=== PATIENT | female | born 1975 | race Caucasian/White ===

== ENCOUNTER 2021-07-12 18:36 | Emergency (ER) | payer BC, SELFPAY ==
[2021-07-12 18:50] VITALS: BP 175/93; PULSE 81; RESP 16; TEMP 36.7; O2SAT 98
--- NOTE | 2021-07-12 19:07 | ED.DENTAL ---
HPI - Dental/Oral General Chief complaint: Dental/Oral Stated complaint: Lt Tooth Pain Source: patient and RN notes reviewed Mode of arrival: ambulatory History of Present Illness HPI Narrative: This is a 45-year-old female that presented to urgent care with complaints of left-sided tooth pain. According to patient she started experiencing pain yesterday that became unbearable today she did not do anything at home to relieve her symptoms. Patient called her dental office she is not able to get an appointment until . She does not have any other associated symptoms. Patient blood pressure elevated due to pain. She will follow up with her primary care physician in take pain medication as prescribed MD Complaint: tooth pain Teeth map: 1. Decayed 2. Decay 3. Decayed Related Data Allergies Allergy/AdvReac Type Severity Reaction Status Date / Time No Known Allergies Allergy Verified 07/12/21 19:06 Review of Systems Review of Systems: A 14 organ system Review of Systems was performed and pertinent positives included in the HPI, otherwise remaining ROS is negative. [facility] Family History Family History (Updated 07/12/21 @ 19:11 by JUVENAL Dorman) Other Family history non-contributory Social History Social History Smoking status: Heavy tobacco smoker Alcohol intake: current Exam Narrative: GENERAL: This is a well-nourished, well-developed patient, in no apparent distress. HEAD: normocephalic, atraumatic. EYES: PERRL. Sclera clear/white. Vision is grossly intact. EARS: External ears normal, auditory canals clear and without drainage, TMs normal without perforation. Hearing grossly intact. NOSE: External nose normal with no obvious nasal discharge, nares without redness, no rhinorrhea. THROAT: Mucous membranes moist, posterior pharynx clear. NECK: Neck supple, non-tender without lymphadenopathy, masses or thyromegaly. CARDIOVASCULAR: Regular rate and rhythm without murmurs, gallops, or rubs. RESPIRATORY: Clear to auscultation. Breath sounds equal bilaterally. No wheezes, rales, or rhonchi. GASTROINTESTINAL: Abdomen soft, non-tender, nondistended. Bowel sounds are active. No hepato-splenomegaly, or palpable masses. No guarding. SKIN: warm, intact with no suspicious lesions or rash, good texture and turgor. NEURO: awake, alert, and oriented to person, place and time. There were no obvious focal neurologic abnormalities. Steady gait EXTREMITIES: Normal range of motion. No edema. No calf tenderness. Negative Homans sign bilaterally. BACK: Nontender without deformity or crepitance. No flank tenderness. Mouth: Decayed to the 17,18 and 19 tooth Course Course Emergency Course: Patient was discharged with Augmentin and ibuprofen along with a small dose of [place] and she will follow with her dentist Vital Signs Vital signs: Vital Signs Temperature 98.0 F 07/12/21 18:50 Pulse Rate 81 07/12/21 18:50 Respiratory Rate 16 07/12/21 18:50 Blood Pressure 175/93 H 07/12/21 18:50 Pulse Oximetry 98 07/12/21 18:50 Temperature 98.0 F 07/12/21 18:50 Pulse Rate 81 07/12/21 18:50 Respiratory Rate 16 07/12/21 18:50 Blood Pressure 175/93 H 07/12/21 18:50 Pulse Oximetry 98 07/12/21 18:50 MDM - Dental/Oral Differential Diagnosis Differential diagnosis: Likely dental caries, toothache, dental abscess and fracture of tooth Discharge Plan Discharge Clinical Impression: Pain in tooth Patient Disposition: Home, Self-Care Condition: Stable Instructions: Antibiotic Form, Toothache (ED) Additional Instructions: Avoid temperature extremes May apply heat or ice to the face Gentle brushing and flossing Antibiotic as directed Tylenol for lesser pain Use ibuprofen regularly Use the medication as provided for severe pain--caution each tablet contains 325 mg of Tylenol--the maximum dose of Tylenol is 4000 mg in 24 ho
== END 2021-07-12 19:13 | disposition home or self-care (01) ==
PROVIDERS: Emergency Provider Nurse Practitioner
DX: K08.89 Other specified disorders of teeth and supporting structures (principal); F17.200 Nicotine dependence, unspecified, uncomplicated
CPT/HCPCS: 99213; G0463

== ENCOUNTER 2022-09-26 12:09 | Emergency (ER) | payer BC, SELFPAY ==
--- NOTE | ~2022-09-26 | XR_ITS ---
EXAMINATION: XR foot LT min 3V DATE: 09/26/2022 12:41 INDICATION: Left foot pain. TECHNIQUE: 4 views of left foot were obtained. COMPARISON: None. FINDINGS: Bone alignment is . No fracture. There is mild osteoarthritis of first metatarsophalangeal joint and some of the interphalangeal joints and midfoot joints. There are enthesophytes at the poste rior and plantar aspects of calcaneal tuberosity. IMPRESSION: 1. Mild polyarticular osteoarthritis. Reviewed, dictated and finalized at location A. [employer]
[2022-09-26 12:23] VITALS: BP 155/73; PULSE 84; RESP 18; TEMP 36.8; O2SAT 99
--- NOTE | 2022-09-26 12:54 | ED.LOWEXIN ---
HPI - Extremity Injury (Lower) General Chief Complaint: Extremity Injury, Lower Stated Complaint: Lt Foot Pain Time Seen by Provider: 09/26/22 12:54 Source: patient Mode of arrival: ambulatory Limitations: no limitations History of Present Illness HPI Narrative: 47-year-old female presents with complaint of pain to left heel for 3-4 days. Denies injury. Reports history of plantar fasciitis but states that pain does not feel the same. States that due to her plantar fasciitis she were supportive shoes with good arch. Has seen a bander and cellophaner machine helper in the past. Denies any new activities. States that pain started with soreness and now she feels That it has worsened and she can barely bear weight. patient ambulatory with slight limp. All systems reviewed and negative except as noted above. Related Data Home Medications Medication Instructions Recorded Confirmed cetirizine 10 mg tablet (Zyrtec) 10 mg PO DAILY 09/26/22 09/26/22 metformin 1,000 mg tablet 1,000 mg PO BID 09/26/22 09/26/22 Allergies Allergy/AdvReac Type Severity Reaction Status Date / Time No Known Allergies Allergy Verified 09/26/22 12:33 Review of Systems Review of Systems: CONSTITUTIONAL: Denies fever, chills, or sweats. EYES: Denies visual changes, redness, or discharge. ENT: Denies rhinorrhea, congestion, sore throat, or otalgia. CARDIOVASCULAR: Denies chest pain, palpitations, or edema. RESPIRATORY: Denies cough or dyspnea. GASTROINTESTINAL: Denies abdominal pain, nausea, vomiting, or diarrhea. GENITOURINARY: Denies dysuria or hematuria. SKIN: Denies rash or itching. MUSCULOSKELETAL: Reports left heel pain. NEUROLOGIC: Denies headache, numbness, or weakness. PSYCHIATRIC: Denies anxiety or depression. All other systems reviewed are negative, except as documented in HPI. [facility] Family History Family History (Updated 07/12/21 @ 19:11 by JUVENAL Dorman) Other Family history non-contributory Social History Social History Smoking status: Heavy tobacco smoker Alcohol intake: current Comments At time of signature, agree with nursing past medical, surgical, social and family history. There is no relevant family history pertinent to the presenting complaint. Exam Narrative: GENERAL: This is a well-nourished, well-developed patient, in no apparent distress. HEAD: normocephalic, atraumatic. EYES: PERRL. Sclera clear/white. Vision is grossly intact. EARS: External ears normal NOSE: External nose normal NECK: Neck supple, non-tender without lymphadenopathy, masses or thyromegaly. CARDIOVASCULAR: Regular rate and rhythm without murmurs, gallops, or rubs. RESPIRATORY: Clear to auscultation. Breath sounds equal bilaterally. No wheezes, rales, or rhonchi. SKIN: warm, Dry, intact with no suspicious lesions or rash, good texture and turgor. NEURO: awake, alert, and oriented to person, place and time. There were no obvious focal neurologic abnormalities. EXTREMITIES: heel pain to plantar aspect on palpation. no swelling. no pain to achilles. also some tenderness to tendons of lateral aspect of foot. ROM intact. Course Course Level of Care: Express Care Visit Vital Signs Vital signs: Vital Signs Temperature 36.8 C 09/26/22 12:23 Pulse Rate 84 09/26/22 12:23 Respiratory Rate 18 09/26/22 12:23 Blood Pressure 155/73 H 09/26/22 12:23 Pulse Oximetry 99 09/26/22 12:23 Oxygen Delivery Room Air 09/26/22 12:23 Temperature 36.8 C 09/26/22 12:23 Pulse Rate 84 09/26/22 12:23 Respiratory Rate 18 09/26/22 12:23 Blood Pressure 155/73 H 09/26/22 12:23 Pulse Oximetry 99 09/26/22 12:23 Oxygen Delivery Room Air 09/26/22 12:23 Reviewed MDM - Extremity Injury (Lower) MDM Narrative Medical decision making narrative: discussed x-ray results with patient. Recommend NSAIDs. Elevation when at rest. Referred to bander and cellophaner machine helper for further evaluation
== END 2022-09-26 13:08 | disposition home or self-care (01) ==
PROVIDERS: Emergency Provider Nurse Practitioner Family
DX: M79.672 Pain in left foot (principal); F17.200 Nicotine dependence, unspecified, uncomplicated
CPT/HCPCS: 73630; 99213; G0463

== ENCOUNTER 2024-07-22 13:50 | Outpatient (CLI) | payer BC, SELFPAY ==
--- NOTE | ~2024-07-22 | MMUS_ITS ---
EXAMINATION: MM diagnostic saeed BI w rachel, US breast BI complete HISTORY: Palpable left breast lumps TECHNIQUE: Additional 3-D tomosynthesis images of the breasts were performed and synthetic 2-D images were generated. CAD analysis was submitted and interpreted. High resolution bilateral complete breas t ultrasound was performed. COMPARISON: No prior studies for comparison. BREAST PARENCHYMAL COMPOSITION: Dense: The breasts are extremely dense, which lowers the sensitivity of mammography. FINDINGS: MAMMOGRAPHIC FINDINGS: There are no suspicious masses, calcifications or architectural distortion in either breast to sugges t malignancy. ULTRASOUND: Complete US of all 4 quadrants of the breast/s and retroareolar region was reviewed. Right breast: At 2:00, 4 cm from the nipple there is a 5 mm cyst. At 9:00, 7 cm from the nipple there is a 6 mm cyst. Left breast: At 3:00, 3 cm from the nipple there is a round hypoechoic 5 mm mass, likely complicated cysts. At 4:00, 3 cm from the nipple there is an oval circumscribed hypoechoic 6 mm mass with low lev el internal echoes/debris, likely benign. IMPRESSION: 1. No evidence for malignancy in the right breast. Probable benign findings in the left breast by ult rasound. 2. Recommend 6 month follow-up Limited left breast ultrasound BI-RADS category 3, probably benign findings. Reviewed, dictated and finalized at location B. MAINTENANCE IMPRESSION: 1. No evidence for malignancy in the right breast. Probable benign findings in the left breast by ultrasound. 2. Recommend 6 month follow-up Limited left breast ultrasound BI-RADS category 3, probably benign findings.
== END 2024-07-22 13:51 | disposition home or self-care (01) ==
LOC: ANHIMG 13:57
PROVIDERS: Visit Provider Obstetrics & Gynecology
DX: N63.25 Unspecified lump in the left breast, overlapping quadrants (principal)
CPT/HCPCS: 76641; 77062; 77066; G0279

== ENCOUNTER 2025-01-03 12:46 | Emergency (ER) | payer BC, SELFPAY ==
--- NOTE | ~2025-01-03 | XR_ITS ---
EXAMINATION: XR chest 2V 01/03/2025 13:10 INDICATION: Cough and congestion PROCEDURE: 2 view chest COMPARISON: 07/30/2015 FINDINGS: The lungs are clear. The cardiomediastinal silhouette is within normal limits. There are no pleural effusions. There is no pneumothorax suspected. IMPRESSION: 1: NO ACUTE CARDIOPULMONARY DISEASE. Reviewed, dictated and finalized at location A.
--- NOTE | 2025-01-03 12:47 | ED_ITS ---
HPI - URI/Sore Throat General Chief Complaint: Upper Respiratory Infection Stated Complaint: chest congestion Time Seen by Provider: 01/03/25 13:31 Source: patient, RN notes reviewed and old records reviewed Mode of arrival: ambulatory Limitations: no limitations History of Present Illness HPI Narrative: 49-year-old female presents to the [facility] with complaints of having a ?head cold? for 7-10 days. States she was using [id number] products which were helping. States that on Saturday, 2 days ago started with some could chest congestion and a cough, decreased energy, trying to clear throat. Denies any chest pain, denies fevers. Has been taking Mucinex the last 2 days. No leg swelling. Treatments prior to arrival: cold medicine Related Data Home Medications ?Medication ?Instructions ?Recorded ?Confirmed ?Last Taken ?Type cetirizine 10 mg tablet (Zyrtec) 10 mg PO DAILY 09/26/22 01/03/25 Unknown His tory metformin 1,000 mg tablet 1,000 mg PO BID 09/26/22 01/03/25 Unknown History Allergies Allergy/AdvReac Type Severity Reaction Status Date / Time No Known Allergies Allergy Verified 01/03/25 12:49 Review of Systems Review of Systems: All systems reviewed & are unremarkable except as noted in HPI and below Constitutional: Constitutional: Reports no additional constitutional complaints ENT: Reports as per HPI Cardiovascular: Cardiovascular: Reports no additional cardiovascular complaints, Denies chest pain and Denies dyspnea Respiratory: Respiratory: Reports as per HPI, Reports chest congestion, Reports cough and Denies dyspnea Musculoskeletal: Musculoskeletal: Reports no additional musculoskeletal complaints Integumentary/Breasts: Skin/Breast: Reports system reviewed and no additional complaints, except as docu PMFSH Past Medical History Medical History Fibroids delivery delivered 2 Allergies Diabetic acidosis, type II Surgical History Surgical History History of tonsillectomy H/O: hysterectomy still has ovaries Social History Social History (Updated 10/15/24 @ 15:03 by Jet Carpenter MA) Smoking packs per day: 1 Smoking cigarettes per day: 20.0 Smoking status: Heavy tobacco smoker Tobacco type: cigarettes Alcohol intake: current Substance use: current Substance use type: marijuana Other substance usage details: gummies at night time Do You Feel Safe in your Home?: Yes Lack of Transportation: No Lack of Food: Never True Current Housing: Decline to Answer Concerned About Future Housing: Decline to Answer Difficulty Paying Gas/Electric Bills: Decline to Answer Difficulty Paying for Meds: Decline to Answer Currently Unemployed: Decline to Answer Education: Decline to Answer Difficulty w/ Childcare or Family Care: Decline to Answer Living arrangements: with family Occupation/Education: other Gender identity (if verbalized by the patient): Female Sexual Orientation (if Verbalized by the Patient): Straight or Heterosexual Comments At the time of my signature, I reviewed and agree with the nursing past medical, surgical, social, and family history. There is no relevant family history pertinent to the patient complaint. Exam Const: General: cooperative, healthy appearing, comfortable, no acute distress, well developed, alert and well nourished Nutritional Appearance: well nourished Orientation/consciousness: patient oriented x3 Limitations: no limitations HENMT: Head: normal to inspection Ears: hearing grossly normal bilaterally, external ears normal, TM's normal bilaterally, EAC's normal, mastoids normal and no periauricular adenopathy Mouth: Yes Normal oral and palatal mucosa present, Yes lip normal, Yes tongue normal and Yes moist mucous membranes Throat: posterior oropharynx normal, uvula midline, postnasal drainage and no uvular edema Eyes: General: appearance normal, both eyes and all related structures Alignment and Position: alignment normal Neck: Neck: normal visual inspection, full ROM, no lymphadenopathy and no meningeal signs Chest: Chest palpation & inspection: normal inspection of the chest Resp: Effort & Inspection: normal respiratory effort and able to speak in complete sentences Auscultation: clear to auscultation bilaterally, no crackles, no rales, no rhonchi, no wheezes and diminished lung sounds Cardio: Rate: regular rate Skin: General skin exam: normal color and no rashes or lesions noted Neuro: General: patient oriented x3, gait normal, moves all extremities and no meningeal signs Cognition (Neuro): normal cognition Speech: normal speech Gait exam (Neuro): Normal gait present Extrem: General: normal to inspection, full ROM, capillary refill normal and normal gait Psych: Appearance: grossly normal and well kempt Mental Status: mental status grossly normal Speech and movement: Normal speech and movement present and Clear speech present Affect: normal affect Attitude: cooperative Course Course Level of Care: Express Care Visit Vital Signs Vital signs: Vital Signs Temperature 98.2 F 01/03/25 12:55 Pulse Rate 87 01/03/25 12:55 Respiratory Rate 18 01/03/25 12:55 Blood Pressure 129/63 01/03/25 12:55 Pulse Oximetry 94 01/03/25 12:55 Oxygen Delivery Room Air 01/03/25 12:55 Temperature 98.2 F 01/03/25 12:55 Pulse Rate 87 01/03/25 12:55 Respiratory Rate 18 01/03/25 12:55 Blood Pressure 129/63 01/03/25 12:55 Pulse Oximetry 94 01/03/25 12:55 Oxygen Delivery Room Air 01/03/25 12:55 Reviewed MDM - URI/Sore Throat MDM Narrative Medical decision making narrative: Patient sitting in exam room. Nontoxic, vitals stable. Patient presents with URI symptoms. Chest x-ray does not show signs of pneumonia. Due to the length of symptoms, worsening over the last 2 days will cover with antibiotic. Discussed [id number] treatments as well. Patient appropriate for outpatient treatment with close follow-up Discharge instructions reviewed with patient, as well as provided in writing per nursing staff. The instructions also include specific and strict return/GO TO THE ER as well as f/u information. All questions have been answered, and the patient deny any further questions with discharge and discharge plan. Some parts of this dictation were generated by voice recognition software and may contain typographical and/or grammatical inaccuracies. Differential Diagnosis Differential diagnosis: Likely upper respiratory infection, otitis media, sinusi tis, viral infection, bronchitis, influenza and pharyngitis Lab Data Labs: Lab Results 01/03/25 Range/Units 15:20 POC Influenza A Ag Negative (Negative) POC Influenza B Ag Negative (Negative) Reviewed Imaging Data Radiologist's impression: EXAMINATION: XR chest 2V 01/03/2025 13:10 INDICATION: Cough and congestion PROCEDURE: 2 view chest COMPARISON: 07/30/2015 FINDINGS: The lungs are clear. The cardiomediastinal silhouette is within normal limits. There are no pleural effusions. There is no pneumothorax suspected. IMPRESSION: 1: NO ACUTE CARDIOPULMONARY DISEASE. Critical Care Time Critical Care Time Critical Care Time: No Discharge Plan Discharge Clinical Impression: Bronchitis Patient Disposition: Home Condition: Stable Instructions: Antibiotic Form, Acute Bronchitis (ED) Additional Instructions: If you are having a hard time finding a physician please call our [facility] group liaison at [phone]. Your rapid flu test was negative Your x-ray did not show signs of pneumonia It is very important to treat your symptoms. Drink plenty of water, Gatorade, Pedialyte, ice pops or Jell-O. -Alternate Tylenol and Motrin per package directions for fever or pain. You can alternate every 4 hours -Antihistamine medication such as Zyrtec/Claritin/Indigo during the day can help improve symptoms. -doing daily nasal irrigations can help relieve pressure your sinuses. Things like a Neti pot -Use Flonase twice a day for 5 days then daily to help reduce the inflammation and dry up your sinuses. -You can also use Mucinex. Be sure to drink plenty of water with this medicat ion at least 8 ounces with every dose and it is important to drink 8 to 10 glasses of water per day. Water is a natural decongestant -Eat and drink things that are easy to swallow, like tea or soup, or popsicles. -Oral rinses such as: Salt water gargles and/or may use topical anesthetic (eg. Chloraseptic spray) or lozenges to relieve dryness or throat pain). -Frequent hand washing or hand graphics software engineer is one of the best ways to prevent spread of infection. -Using a vaporizer or humidifier at night will also help thin secretions and help with coughing up phlegm. -Follow up with primary care provider in 7-10 days if condition is not improving - For new or worsening symptoms go directly to the nearest ER Patient Language: Portuguese Prescriptions: New (DME) Aerochamber MV Spacer See Rx Instructions .Route Qty: 1 0RF Rx Instructions: As directed albuterol sulfate 90 mcg/actuation HFA aerosol inhaler 2 puff inhalation QID PRN (Reason: shortness of breath or wheezing) Qty: 6.7 0RF doxycycline monohydrate 100 mg tablet 100 mg PO BID Qty: 14 0RF prednisone 20 mg tablet See Rx Instructions .Route .COMPLEX Qty: 9 0RF Rx Instructions: Take 40 mg daily for 3 days, 20 mg daily for 3 days No Action cetirizine [Zyrtec] 10 mg Tablet 10 mg PO DAILY metformin 1,000 mg Tablet 1,000 mg PO BID estradiol 0.075 mg/24 hr patch semiweekly 1 patch transdermal 2XW Qty: 24 4RF Rx Instructions: apply 1 patch for 3 days alternating with 1 patch for 4 days each week fluoxetine [Prozac] 20 mg capsule 20 mg PO DAILY Qty: 90 2RF Follow-up/Referrals: Miles,Julio Cesar Cooper MD [Primary Care Provider] - 2 Weeks ([facility] follow- up) Stand Alone Forms: Work/School Release IP Time of Disposition: 13:56
--- OUTSIDE RECORDS SUMMARY | 2025-01-03 12:49 | XMS_ITS | Clinical Summary ---
Author Organization [facility] [employer] Address [address] [place] [address] Care Team Providers Care Disease Case Manager Rn Name Role Phone Isaac Huffman MD Primary Care Provider [phone] Source Comments [facility] [employer],non-owned Affiliates and Associated Physician Practices is amultiple site organization consisting of ambulatory clinics and hospital sitesin [place], [place], [place] and [place]. This disclosure is being madepursuant to the Care Everywhere program and may not contain all information available regarding this patient. Last updated 18.[facility] [employer] Allergies No known active allergies Medications * Be aware that medications may not be up to date on this document. Alwaysverify current medications with the patient. albuterol (2.5 MG/3ML) 0.083% 2.5 mg Inhale by mouth once Active IPRATROPIUM BROMIDE IN Active METFORMIN HCL ER, MOD, PO Active albuterol HFA (PROVENTIL;ILDA PATRICA;PROAIR) 108 (90 BASE) MCG/ACT inhalerIndicatio ns:Asthma Inhale 2 Puffs by mouth every 6 hours as needed Reasons: Asthma 1 Inhaler 06/06/2017 Active predniSONE (DELTASONE) 10 MG tablet 5 tabs PO x 1 day, 4 tabs PO x 1 day, 3 tabs PO x 1 day, 2 tabs PO x 1 day, 1 tab PO x 1 day 15 tablet 02/07/2018 Active Family History Medical History Relation Name Comments Asthma Neg Hx Autoimmune Disease Neg Hx Bipolar Disorder Neg Hx Cancer - Breast Neg Hx Cancer - Colon Neg Hx Cancer - Other Neg Hx Cancer - Ovarian Neg Hx Cancer - Pancreatic Neg Hx Cancer - Prostate Neg Hx Depression Neg Hx Eczema Neg Hx Hypertension Neg Hx Migraine Neg Hx Osteoporosis Neg Hx Seizures Neg Hx Sudd. <30 Neg Hx Thyroid Disease Neg Hx Ulcerative Colitis Neg Hx Relation Name Status Comments Father unknown Alive Mother Alive Social History Tobacco Use Types Packs/Day Years Used Date Smoking Tobacco: Every Day Smokeless Tobacco: Never Tobacco Cessation:Ready to Q uit: No; Counseling Given: No Alcohol Use Standard Drinks/Week Comments No 0 (1 standard drink = 0.6 oz pur e alcohol) Comments No Sex and Gender Information Value Date Recorded Sex Assigned at Not on file Legal Sex Female 12:08 PM CDT Gender Identity Not on file Sexual Orientation Not on file Last Filed Vital Signs Vital Sign Reading Time Taken Comments Blood Pressure 118/72 02/07/2018 4:20 PM CDT Pulse 90 02/07/2018 4:20 PM CDT Temperature 37.1 C (98.7 F) 02/07/2018 4:20 PM CDT Respiratory Rate 20 02/07/2018 4:20 PM CDT Oxygen Saturation 97% 02/07/2018 4:20 PM CDT Inhaled Oxygen Concentration - - Weight 117.9 kg (260 lb) 02/07/2018 4:20 PM CDT Height 170.2 cm (5' 7 ) 02/07/2018 4:20 PM CDT Body Mass Index 40.72 02/07/2018 4:20 PM CDT Plan of Treatment Health Maintenance Due Date Last Done Comments COLOGUARD (AGES 45-75) - COL ON CA SCREENING 1976 COLON MONITORING 1976 COLONOSCOPY - COLON CA SCREENING 1976 CT COLONOGRAPHY - COLON CA SCREENING 1976 Colorectal Cancer Screening 1976 FIT - COLON CA SCREENING 1976 FLEX SIG - COLON CA SCREENING 1976 LIPID TESTING 1976 MAMMOGRAM 1976 PAP SMEAR 1976 HIV SCREENING 1991 HEPATITIS C SCREENING 08/09/1994 DTAP/TDAP/TD VACCINES (1 - Tdap) 1995 HEPATITIS B VACCINE (1 of 3 - 19+ 3-dose series) 1995 SCREENING FOR DIABETES 06/06/2017 COVID-19 VACCINE (2 - 2023-2 5 season) 2024 01/21/2021 DEPRESSION SCREENING 09/16/2024 INFLUENZA VACCINE (Season Ended) 2025 07/31/20 15 ZOSTER VACCINE (1 of 2) 2026 HIB VACCINE Aged Out No longer eligi ble based on patient's age to complete this topic HPV VACCINE Aged Out No longer eligi ble based on patient's age to complete this topic MENINGOCOCCAL (Group B) VACC INE SHARED DECISION-MAKING Aged Out No longer eligibl e based on patient's age to complete this topic MENINGOCOCCAL GROUPS A/C/Y/W VACCINE Aged Out No longer eligible b ased on patient's age to complete this topic PNEUMOCOCCAL VACCINE Aged Out No long er eligible based on patient's age to complete this topic Insurance [employer] Member Subscriber Plan / Payer (Ef fective for All Dates) Name:Geri Denis Relation to Subscriber:Spouse Name:FELISA DENIS Date of :1970 (Home) Address: [address] [place] [address] Payer ID:Not on file Type:[facility] Address: [facility] [id number] [place] [address] Care Teams Disease Case Manager Rn Relationship Specialty Start Date End Date Isaac Huffman MD [address] [place] [address] PCP - General Family Medicine 06/06/17
--- OUTSIDE RECORDS SUMMARY | 2025-01-03 12:49 | XMS_ITS | Clinical Summary ---
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 Gender Identity Not on file Sexual Orientation Not on file Plan of Treatment Health Maintenance Due Date Last Done Comments Hepatitis C Virus (HCV) Screening 1976 TdaP Immunization 1976 Hepatitis B Immunization (1 of 3 - 19+ 3-dose series) 1995 Pap Smear 1997 Cervical Cancer Screening (CCS) 2006 HPV/Cotest 2006 Discussion re Starting/Frequ ency of Mammograms 2016 Colonoscopy 2021 Colorectal Cancer Screening 2021 Influenza Immunization (#1) 2024 07/31/2015 SARS-COV-2 Immunization ( season) 2024 Respiratory Syncytial Virus (RSV) Immunization (Adult) (1 - 1-dose 75+ series) 2051 Meningococcal Immunization (ACWY) Aged Out No longer eligible based on patient's age to complete this topic Pneumococcal Immunization Combined Aged Out No longer eligible based on patient's age to complete this topic Rotavirus Immunization Aged Out No lo nger eligible based on patient's age to complete this topic
--- OUTSIDE RECORDS SUMMARY | 2025-01-03 12:49 | XMS_ITS | Clinical Summary ---
Author Organization [facility] Address [address] [place] [address] Care Team Providers Care Property Disposal Manager Name Role Phone Julio Cesar Aquino MD Primary Care Provider [phone] Ousmane Perez MD Unavailable [phone] Allergies No known active allergies Medications metFORMIN ER 500 MG 24 hr tablet Take 2 tablets by mouth 2 (two) times a day. 2 03/17/2018 Active PROAIR HFA 108 (90 Base) MCG/ACT inhaler Inhale 2 puffs into the lungs every 6 (six) hours as needed. Only uses it a couple times a month 2 03/17/2018 Active buPROPion XL 300 MG 24 hr tablet Take 300 mg by mouth daily. 2 03/17/2018 Active ADVAIR DISKUS 250-50 MCG/DOSE inhaler Inhale 1 puff into the lungs 2 (two) times daily. 2 02/25/2018 Active glipiZIDE 5 MG tablet Take 10 mg by mouth 2 (two) times daily before meals. 2 03/17/2018 Active cetirizine 10 MG tablet Take 10 mg by mouth daily. Active Active Problems Problem Noted Date Diagnosed Date Intramural leiomyoma of uterus 12/02/2018 Resolved Problems Problem Noted Date Diagnosed Date Resolved Date Abnormal uterine bleeding 12/02/2018 Social History Tobacco Use Types Packs/Day Years Used Date Smoking Tobacco: Every Day Cigarettes 1 20 Smokeless Tobacco: Never Alcohol Use Standard Drinks/Week Comments Yes 3.3 (1 standard drink = 0.6 oz p ure alcohol) Comments No Sex and Gender Information Value Date Recorded Sex Assigned at Not on file Legal Sex Female 5:40 PM CDT Gender Identity Not on file Sexual Orientation Not on file Last Filed Vital Signs Vital Sign Reading Time Taken Comments Blood Pressure 117/71 12/04/2018 12:17 PM CDT Pulse 79 12/04/2018 12:17 PM CDT Temperature 36.8 C (98.3 F) 12/04/2018 12:17 PM CDT Respiratory Rate 19 12/04/2018 12:1 7 PM CDT Oxygen Saturation 100% 12/04/2018 12: 17 PM CDT Inhaled Oxygen Concentration - - Weight 109.7 kg (241 lb 13.5 oz) 12/02/2018 6:15 AM CDT Height 170.2 cm (5' 7 ) 12/02/2018 6:15 AM CDT Body Mass Index 37.88 12/02/2018 6:15 AM CDT Plan of Treatment Health Maintenance Due Date Last Done Comments Cervical Cancer Screening Pa p Smear (Age 30 to 64) Every 3 Years 1976 Colorectal Cancer Screening Colonoscopy (10 Years) 1976 Annual Physical 1979 Hepatitis C 1994 DTaP, Tdap and Td Vaccines ( 1 - Tdap) 1995 Hepatitis B Vaccines (1 of 3 - 19+ 3-dose series) 1995 Pneumococcal Vaccine: Pediat rics (0 to 5 Years) and At-Risk Patients (6 to 49 Years) (1 of 2 - PCV) 1995 Cervical Cancer Screening Pa p with HPV Testing (Age 30 to 64) Every 5 Years 2006 Cervical Cancer Screening with HPV 2006 Mammogram Screening 2016 COVID-19 Vaccine (2023-2 5 season) 2024 Meningococcal B Vaccine Aged Out No l onger eligible based on patient's age to complete this topic Meningococcal Vaccine Aged Out No yuliana doug eligible based on patient's age to complete this topic RSV Immunizations Under 20 Months Aged Out No longer eligible based on patient's age to complete this topic Insurance CIGNA CIGNA Advance Directives * Full Code (Latest Code Status on File) Date Activated Date Inactivated Comments 12/02/2018 2:53 PM 12/04/2018 5:21 PM Care Teams Property Disposal Manager Relationship Specialty Start Date End Date Julio Cesar Aquino MD [address] [place] [address] PCP - General FAMILY PRACTICE 11/18/18 Ousmane Perez MD [address] [address] Referring Physician OBADRIELN 11/20/18
--- OUTSIDE RECORDS SUMMARY | 2025-01-03 12:49 | XMS_ITS | Continuity of Care Document ---
Author Organization [facility] Address [address] [place] [address] Phone Care Team Providers Care Textile Machine Mechanic Name Role Phone Conversion MD, Doctor Unavailable Unavailabl e Allergies, Adverse Reactions, Alerts Substance Reaction Status Criticality No Known Drug Allergies Other Active No I nformation Medications Medication Instructions Dosage Effective Dates (start - stop) Status Comments PROAIR HFA 90 MCG INHALER 2 Q 4-6HR - Active FEXOFENADINE HCL 180 MG TABLET 1 QD-daily - Active SYMBICORT 80/4.5 MCG INHALER 2 BID - Active FLUTICASONE PROPIONATE 50MCG S 2 QD-daily - Active NASACORT AQ NASAL SPRAY 2 QD-daily - No Longer Active NASACORT AQ 55MCG APPLICS 2 QD-daily - No Longer Active SYMBICORT 80-4.5MCG PUFFS 2 BID - No Longer Active FEXOFENADINE HCL 180 MG TABLET 1 QD-daily - No Longer Active FLUTICASONE 50 MCG NASAL SPRAY 2 QD-daily - No Longer Active PROAIR HFA 90MCG PUFFS 2 Q 4-6HR - No Longer Active ZYRTEC 10 MG TABLET 1 QD - No Longer Active RHINOCORT AQUA 32MCG SPRAY(S) 1 QD - No Longer Active ZYRTEC 10MG TABS 1 QD - No Longer Active FLONASE 0.05% NASAL SPRAY 2 QD - No Longer Active PREDNISONE 20MG TABS 2 QD 2004 - No Longer Active PULMICORT 200 MCG TURBUHALER 2 BID - No Longer Active ZITHROMAX 250MG TABS 1 DIRECTE 2004 - No Longer Active PREDNISONE 20MG TABS 2 QD 2003 - No Longer Active ASTELIN 137MCG APPLICS 1 BID - No Longer Active ALBUTEROL 90MCG PUFFS 2 Q 4HR - No Longer Active MARIE 180MG TABS 1 QD - No Longer Active PULMICORT 200MCG APPLICS 2 QD - No Longer Active FLONASE 50MCG APPLICS 2 QD - No Longer Active Advance Directives Directive Yes / No Effective Date File Name No Information Encounters Encounter Description Practice Location Reason(s) For Visit Diagnoses Date Provider Providers Copied on Encounter [facility], [address], [place], [place], [id number] , tel: [phone] Conversion Department No Information 1 Conversion Doctor. [address] [place] [address], [address], . [facility], [address], [place], [place], [id number] , tel: [phone] [facility] ALLERGIC RHINITIS NECINTRINSIC ASTHMA NOSVACCIN FOR INFLUENZA 7 Everette R[address]os. [address] [place] [address], [id number], . tel:[phone] [facility], [address], [place], [place], [id number] , tel: [phone] [facility] ACUTE NASOPHARYNGITISAC SUPP OM W DRUM RUPTEXT ASTHMA W(ACUTE) EXAC 5 Conversion Doctor. [address] [place], [address], [place]. [facility], [address], [place], [place], [id number] , [place] tel: [phone] [facility] TOBACCO USE DISORDER 4 Everette Ríos. [address] [facility], [place] [address], [place], [place], [id number], [place]. [phone] Family History Family Member Type Diagnosis Age At Onset No Information Immunizations Vaccine Date Status Comments 41197 - Influenza administered Source: [place] Unspecified Payers Payer name Insurance type Covered alliance party ID Authoriza tion(s) No Information Social History Type Description Quantity Date Captured Comments Sex Female Smoking Status No Information Chief Complaint And Reason For Visit No Information Reason For Referral Reason For Referral No Information History Of Present Illness Encounter Date Complaint History Of Prese nt Illness No Information Functional Status Date Functional Assessmen t No Information Medications Administered Medication Instructions Dosage Effective Dates (start - stop) Status Comments NASACORT AQ NASAL SPRAY 2 QD-daily - No Longer Active Instructions Date Instruction Additional Infor mation No Information Assessments Type Assessment Date No Information Patient Care Teams Name Effective Dates (start - stop) Status Members No Information
--- OUTSIDE RECORDS SUMMARY | 2025-01-03 12:50 | XMS_ITS | Continuity of Care Document ---
Author Organization [facility] Address [address] [place] [address] Phone Care Team Providers Care Signal Maintainer Name Role Phone Conversion MD, Doctor Unavailable [...] Diagnoses Date Provider Providers Copied on Encounter [facility], [address], [place], [place], [id number] , tel: [phone] Conversion Department No Information 1 Conversion Doctor. [address] [place] [address], [address], . [facility], [address], [place], [place], [address] , tel: [phone] [facility] VACCIN FOR INFLUENZAALLERGIC RHINITIS NECINTRINSIC ASTHMA NOS 200 7 Everette R[address]os. [address] [place] [address], [id number], . tel:[phone] [facility], [address], [place], [place], [address] , tel: [phone] [facility] EXT ASTHMA W(ACUTE) EXACAC SUPP OM W DRUM RUPTACUTE NASOPHARYNGITIS 5 Conversion Doctor. [address] [place], [address], [place]. [facility], [address], [place], [place], [id number] , [place] tel: [phone] [facility] TOBACCO USE DISORDER 4 Everette R[address]os. [address] [facility], [place] [address], [place], [place], [id number], [place]. tel:[phone] Family History Family Member Type Diagnosis Age At Onset No Information Immunizations Vaccine Date Status Comments 19484 - Influenza administered Source: [place] Unspecified Payers Payer name Insurance type Covered constitution party ID Authoriza tion(s) No Information Social [...]
[2025-01-03 12:55] VITALS: BP 129/63; PULSE 87; RESP 18; TEMP 36.8; O2SAT 94
[2025-01-03 15:21] LABS: EDINFLUASCREEN Negative (Negative); EDINFLUBSCREEN Negative (Negative)
== END 2025-01-03 14:02 | disposition home or self-care (01) ==
PROVIDERS: Emergency Provider Nurse Practitioner; PCP Family Medicine
DX: J40 Bronchitis, not specified as acute or chronic (principal); F17.210 Nicotine dependence, cigarettes, uncomplicated; F12.90 Cannabis use, unspecified, uncomplicated; E11.10 Type 2 diabetes mellitus with ketoacidosis without coma; Z79.84 Long term (current) use of oral hypoglycemic drugs
CPT/HCPCS: 71046; 87804; 99213; G0463